=== PATIENT | female | born 1950 | race Hispanic/Latino ===

== ENCOUNTER 2021-03-23 18:17 | Emergency (ER) | payer OTHER, MEDICARE ==
[~2021-03-23] VITALS: Ht 167.6 cm; Wt 70.3 kg
[2021-03-23 19:00] VITALS: BP 168/75
[2021-03-23] MEDS ORDERED: MELO7.5T12 PO (19:15)
[2021-03-23] MEDS ORDERED: DICL25 PO (19:15)
[2021-03-23] MEDS: HYDROCODONE/ACETAMINOPHEN 5/325 MG TAB PO ONE (19:41)
== END 2021-03-23 19:38 | disposition home or self-care (01) ==
LOC: EDH 18:17
DX: M17.11 Unilateral primary osteoarthritis, right knee (principal); I10 Essential (primary) hypertension; E78.00 Pure hypercholesterolemia, unspecified; Z79.1 Long term (current) use of non-steroidal anti-inflammatories (NSAID)
CPT/HCPCS: 73562

== ENCOUNTER 2023-11-18 20:17 | Emergency (ER) | payer OTHER, MEDICARE ==
[~2023-11-18] VITALS: Ht 167.6 cm; Wt 60.8 kg
[~2023-11-18 20:17] MED LIST: DICL25TA11 PO; MELO7.5T12 PO
[2023-11-18 21:00] LABS: BASOPHILS # (AUTO) 0.04 K/uL (0.00-0.20); BASOPHILS % (AUTO) 0.3 % (0.0-5.0); EOSINOPHILS # (AUTO) 0.08 K/uL (0.00-0.70); EOSINOPHILS % (AUTO) 0.7 % (0.0-8.0); HEMATOCRIT 31.6 % (36-48); IMMATURE GRANULOCYTE ABSOLUTE 0.05 K/uL (0-1); LYMPHOCYTES # (AUTO) 2.6 K/uL (1.0-4.8); LYMPHOCYTES % (AUTO) 21.9 % (21.0-51.0); MEAN CORPUSCULAR HEMOGLOBIN 31.6 pg (27.0-33.0); MEAN CORPUSCULAR HGB CONC 35.8 g/dL (32.0-36.0); MEAN CORPUSCULAR VOLUME 88.3 fL (79-99); MONOCYTES % (AUTO) 8.7 % (3.0-13.0); NEUTROPHILS # (AUTO) 8.1 K/uL (1.8-7.7); PLATELET COUNT (AUTO) 285 K/uL (130-400); RED BLOOD CELL COUNT(AUTO) 3.58 MIL/uL (4.00-5.50); RED CELL DISTRIBUTION WIDTH 12.6 % (11.0-15.5); WHITE BLOOD COUNT (AUTO) 11.9 K/uL (4.8-10.8)
[2023-11-18 21:09] LABS: CREATININE 0.7 mg/dL (0.5-1.0)
[2023-11-18 21:16] LABS: ALBUMIN 3.7 g/dL (3.5-5.0); BILIRUBIN,TOTAL 0.4 mg/dL (0.2-1.0); TOTAL PROTEIN, SERUM 7.2 g/dL (6.0-8.3)
[2023-11-18] MEDS: 0.9%NACL 1000ML 1,000 ML IV ONE (21:27)
[2023-11-18] MEDS: ONDANSETRON 4MG INJ IVP ONE (21:28)
[2023-11-18] MEDS: MORPHINE 2 MG SYG IVP ONE (21:28)
[2023-11-18] MEDS: SOLU-MEDROL 125MG VIAL IVP ONE (21:55)
[2023-11-18] MEDS: KETOROLAC 30MG VIAL (30MG/ML) IVP ONE (21:56)
[2023-11-18] MEDS ORDERED: METH4TAB3 PO (22:02)
[2023-11-18 23:19] VITALS: BP 141/74; PULSE 71; RESP 11; O2SAT 98
== END 2023-11-18 23:27 | disposition home or self-care (01) ==
LOC: EDH 20:17
DX: S39.011A Strain of muscle, fascia and tendon of abdomen, initial encounter (principal); E11.65 Type 2 diabetes mellitus with hyperglycemia; E87.1 Hypo-osmolality and hyponatremia; D64.9 Anemia, unspecified; I10 Essential (primary) hypertension; E78.00 Pure hypercholesterolemia, unspecified; X58.XXXA Exposure to other specified factors, initial encounter; Y93.89 Activity, other specified; Y92.89 Other specified places as the place of occurrence of the external cause; Y99.8 Other external cause status
CPT/HCPCS: 99285; 74176; 96374; 96375; 93926; 96361; 80053; 85025; 36415; J2270; J7030; J2919; J2405; J1885